=== PATIENT | male | born 1990 | race Caucasian/White ===

== ENCOUNTER 2017-12-04 17:03 | Outpatient (CLI) | payer OTHER ==
--- NOTE | 2017-12-04 18:31 | Ultrasound Report ---
EXAM: LEFT LOWER EXTREMITY VENOUS ULTRASOUND EXAM DATE: 12/04/2017 06:15 PM. CLINICAL HISTORY: PAIN IN LEFT LOWER LEG. COMPARISON: None. TECHNIQUE: Real-time sonographic vascular imaging was performed by the optical instrument inspector through the lower extremity utilizing both color-flow and Doppler spectral analysis. Multiple sales representative meats static enrrique ges were saved for review. FINDINGS: Common Femoral Vein (CFV): Normal. CFV-GSV Junction: Normal. Profunda Femoral Vein (PFV): Normal. Femoral Vein (FV) Prox: Normal. Femoral Vein (FV) Mid: Normal. Femoral Vein (FV) Dist: Normal. Popliteal Vein: Normal. Posterior Tibial Veins: Normal. Peroneal Veins: Normal. Gastrocnemius vein prominent clot is seen extending to within 0.5 cm of the popliteal vein Other: None. IMPRESSION: Positive for thrombosis in the left gastrocnemius vein. Unable to reach referring physician; report called to [facility] ER at 1828 hrs. YOGI Referring Provider Line: [phone] SITE ID: [id number]
== END 2017-12-04 17:04 | disposition home or self-care (01) ==
LOC: DI 17:03
PROVIDERS: ATTEND Student in an Organized Health Care Education/Training Program
DX: I82.492 Acute embolism and thrombosis of other specified deep vein of left lower extremity (principal)

== ENCOUNTER 2017-12-04 18:32 | Emergency (ER) | payer OTHER ==
[2017-12-04 18:46] VITALS: BP 122/74
[2017-12-04] MEDS ORDERED: ENOXAPARIN 80 MG/0.8 ML SYRINGE SUBQ STA (19:40)
--- NOTE | 2017-12-04 19:42 | ED Physician Documentation ---
PD HPI LOWER EXT INJURY - Stated complaint Stated Complaint: US RESULTS - Chief complaint Chief Complaint: Ext Problem - History obtained from History obtained from: Patient - History of Present Illness PD HPI LOW EXT INJURY LOCATION: Other (He is a healthy 27-year-old gentleman injured his knee playing soccer and then drove up from [place] last week and developed calf pain about 5 days ago. He saw his doctor yesterday and ultrasound was done today showing a calf DVT. The washing and screening plant supervisor/radiologist were unable to get a hold of the ordering physician so he was referred here for initial treatment. There is no personal history of DVT or PE and he denies chest pain or trouble breathing.) Review of Systems Constitutional: denies: Fever, Chills Cardiac: denies: Chest pain / pressure, Palpitations Respiratory: denies: Dyspnea, Cough PD PAST MEDICAL HISTORY - Past Medical History Past Medical History: No - Past Surgical History Past Surgical History: No - Present Medications Home Medications: Ambulatory Orders Medication Instructions Recorded Confirmed Enoxaparin [Lovenox] 80 mg SUBQ Q12H #10 syringe 12/04/17 Propranolol [Inderal] 0 BID 12/04/17 - Allergies Allergies/Adverse Reactions: Allergies Allergy/AdvReac Type Severity Reaction Status Date / Time caffeine Allergy Rash Verified 12/04/17 18:46 - Social History Does the pt smoke?: No Smoking Status: Never smoker Does the pt drink ETOH?: No Does the pt have substance abuse?: No - Immunizations Immunizations are current?: Yes PD ED PE NORMAL - Vitals Vital signs reviewed: Yes - General General: Alert and oriented X 3, No acute distress - Extremities Extremities: Other (Left leg is in a knee immobilizer. There is really no significant calf tenderness or swelling.) - Neuro Neuro: Alert and oriented X 3, Normal speech Results - Vitals Vitals: Vital Signs - 24 hr 12/04/17 18:42 Temperature 36.4 C L Heart Rate 68 Respiratory 16 Rate Blood Pressure 122/74 O2 Saturation 100 Oxygen O2 Source Room air PD MEDICAL DECISION MAKING - ED course ED course: 27-year-old gentleman with a induced DVT given recent injury and travel of the left leg, below the calf. We were unable to get a hold of his physician so I will put him on Lovenox pending follow-up tomorrow as it can easily be stopped or changed. Departure - Departure Disposition: 01 Home, Self Care Clinical Impression: Deep vein thrombosis Qualifiers: DVT location: lower extremity Affected thrombotic vein of extremity: unspecified lower extremity distal vein Chronicity: acute Laterality: left Qualified Code(s): I82.4Z2 - Acute embolism and thrombosis of unspecified deep veins of left distal lower extremity Condition: Good Record reviewed to determine appropriate education?: Yes Instructions: DVT Dc Prescriptions: Enoxaparin [Lovenox] 80 mg SUBQ Q12H #10 syringe Comments: [place] the prescription with you. As discussed we are choosing this medication tonight such that your doctor can change it tomorrow if she sees fit to use a different agent.
== END 2017-12-04 19:56 | disposition home or self-care (01) ==
LOC: ED 18:32
DX: I82.4Z2 Acute embolism and thrombosis of unspecified deep veins of left distal lower extremity (principal); I82.492 Acute embolism and thrombosis of other specified deep vein of left lower extremity
CPT/HCPCS: 93971; 96372; 99283; J1650

== ENCOUNTER 2017-12-11 14:28 | Outpatient (CLI) | payer OTHER ==
--- NOTE | 2017-12-12 14:12 | MRI Report ---
EXAM: LEFT KNEE MRI WITHOUT CONTRAST EXAM DATE: 12/11/2017 04:06 PM. CLINICAL HISTORY: Patient reports twisting soccer injury on 11/18/2017. Patient fell and felt a pop in his left knee. Lateral internal pain worse with pressure, difficulty weightbearing. Buckling. COMPARISON: None available. TECHNIQUE: Multiplanar, multisequence T1-weighted and fluid-sensitive sequences of the knee without c ontrast. Other: None. FINDINGS: Bones: Mild impaction fractures anterior aspect lateral femoral condyle and posterior margin lateral tibial plateau. Subtle impaction fractures at the medial margin medial femoral condyle and posterior margin medial tibial plateau. Articular Cartilage: No focal defect. Medial Meniscus: The medial meniscus is intact. Lateral Meniscus: Ill-defined hyperintense signal in the substance of the anterior horn and root. No discrete fluid-filled tear. Cruciate Ligaments: Diffuse distortion mid to distal aspect anterior cruciate ligament. Some torn fib ers extending to the anterior intercondylar notch. Some fibers may remain intact. Posterior cruciate ligament is intact. Collateral Ligaments: The medial collateral and lateral collateral ligamentous structures are intact. Tendons: The quadriceps, patellar, semimembranosus, and popliteus tendons are unremarkable. Musculature: No fatty atrophy. Minimal edema in the vastus lateralis, popliteus, and calf musculature . Other: Large joint effusion with synovitis. Thickening of the medial plica. No popliteal cyst. No loo se bodies. The medial and lateral retinacula are intact. Mild subcutaneous edema anteriorly. Mild teresa ctive edema in the fat pads. IMPRESSION: 1. High-grade partial versus complete disruption anterior cruciate ligament. 2. Contusion anterior horn and root lateral meniscus without discrete tear. 3. Mild impaction fractures lateral femoral condyle and lateral tibial plateau and subtle impaction f ractures medial femoral condyle and medial tibial plateau. 4. Large joint effusion. [facility]UL[facility] Referring Provider Line: [phone] SITE ID: [id number]
== END 2017-12-11 14:29 | disposition home or self-care (01) ==
LOC: DI 14:28
PROVIDERS: ATTEND General Practice
DX: S83.512A Sprain of anterior cruciate ligament of left knee, initial encounter (principal); S72.422A Displaced fracture of lateral condyle of left femur, initial encounter for closed fracture; S82.142A Displaced bicondylar fracture of left tibia, initial encounter for closed fracture; S72.432A Displaced fracture of medial condyle of left femur, initial encounter for closed fracture; M25.462 Effusion, left knee

== ENCOUNTER 2020-08-11 03:41 | Outpatient (CLI) | payer OTHER | END 2020-08-11 03:42 | disposition short-term general hospital (02) | LOC: EMS 03:41 | PROVIDERS: ATTEND Surgery | DX: R51.9 Headache, unspecified (principal); R42 Dizziness and giddiness; H53.8 Other visual disturbances | CPT/HCPCS: A0425; A0427 ==

== ENCOUNTER 2020-10-19 16:56 | Emergency (ER) | payer OTHER ==
--- NOTE | 2020-10-19 17:01 | ED Physician Documentation ---
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 He had a first-time seizure back in July. Initially seen at [facility] and subsequently followed up with Dr. Livingston, [employer] neurologist in [place]. He had an MRI done, per his report it was normal. He does not drink alcohol. He was on Keppra but was weaned off about a month ago. He had 2 [id number] tonic-clonic seizures today. He does not remember them. On arrival his mental status is normal. He has no complaints. He did not bite his tongue or get injured. No incontinence. Review of Systems Ten Systems: 10 systems reviewed and negative Constitutional: denies: Fever, Chills Nose: denies: Rhinorrhea / runny nose, Congestion Throat: denies: Sore throat Cardiac: denies: Chest pain / pressure, Palpitations Respiratory: denies: Dyspnea, Cough PD PAST MEDICAL HISTORY - Past Surgical History Past Surgical History: No - Present Medications Home Medications: Ambulatory Orders Medication Instructions Recorded Confirmed No Known Home Medications 10/19/20 10/19/20 - Allergies Allergies/Adverse Reactions: Allergies Allergy/AdvReac Type Severity Reaction Status Date / Time caffeine Allergy Rash Verified 10/19/20 17:00 - Social History Does the pt smoke?: No Smoking Status: Never smoker Does the pt drink ETOH?: No Does the pt have substance abuse?: No - Immunizations Immunizations are current?: Yes PD ED PE NORMAL - Vitals Vital signs reviewed: Yes - General General: Alert and oriented X 3, No acute distress - HEENT HEENT: PERRL, EOMI - Neck Neck: Supple, no meningeal sign, No bony TTP - Cardiac Cardiac: RRR, No murmur - Respiratory Respiratory: No respiratory distress, Clear bilaterally - Abdomen Abdomen: Normal bowel sounds, Soft, Non tender - Back Back: No CVA TTP, No spinal TTP - Derm Derm: Normal color, Warm and dry - Extremities Extremities: No edema, No calf tenderness / cord - Neuro Neuro: Alert and oriented X 3, No motor deficit, No sensory deficit, Normal speech Results - Vitals Vitals: Vital Signs - 24 hr 10/19/20 10/19/20 17:01 17:50 Temperature 36.7 C Heart Rate 90 88 Respiratory 19 16 Rate Blood Pressure 110/77 112/70 O2 Saturation 100 98 Oxygen O2 Source Room air - EKG (time done) 1708 Rate: Rate (enter#) (86) Rhythm: NSR Mcleod: Normal Intervals: Normal CO QRS: Normal Ischemia: Normal ST segments Computer interpretation: Agree with computer - Labs Labs: Laboratory Tests 10/19/20 10/19/20 10/19/20 17:05 17:05 17:10 WBC 12.1 H RBC 4.77 Hgb 15.0 Hct 41.7 L MCV 87.4 MCH 31.4 H MCHC 36.0 RDW 11.9 L Plt Count 271 MPV 10.0 Neut # (Auto) 9.4 H Lymph # (Auto) 1.6 Pierce # (Auto) 1.0 Eos # (Auto) 0.0 Baso # (Auto) 0.0 Absolute Nucleated RBC 0.00 Nucleated RBC % 0.0 Sodium 135 Potassium 3.6 Chloride 100 L Carbon Dioxide 20 L Anion Gap 15.0 H BUN 17 Creatinine 1.1 Estimated GFR (MDRD) 79 L Glucose 91 Calcium 9.8 Magnesium 2.0 Total Bilirubin 1.0 AST 27 ALT 19 Alkaline Phosphatase 64 Total Protein 7.5 Albumin 4.7 Globulin 2.8 Albumin/Globulin Ratio 1.7 Urine Opiates Screen NEGATIVE Ur Oxycodone Screen NEGATIVE Urine Methadone Screen NEGATIVE Ur Propoxyphene Screen NEGATIVE Ur Barbiturates Screen NEGATIVE Ur Tricyclics Screen NEGATIVE Ur Phencyclidine Scrn NEGATIVE Ur Amphetamine Screen NEGATIVE U Methamphetamines Scrn NEGATIVE U Benzodiazepines Scrn NEGATIVE Urine Cocaine Screen NEGATIVE U Cannabinoids Screen NEGATIVE PD MEDICAL DECISION MAKING - ED course ED course: Second seizure in 3 months. He had been weaned off of Keppra. His exam here is normal and nothing worrisome on his labs. I tried to get a hold of his neurologist, Dr. Livingston in [place]. He was not available and no one takes call for him but I did speak with the medical practice administrator of the day who recommended restarting Keppra at the old dose ending follow-up. Was discussed with the patient and he would like to not take Keppra until he sees his neurologist. Risks of not taking seizure medicine was discussed with the patient he understands and takes these upon himself. Departure - Departure Disposition: 01 Home, Self Care Clinical Impression: Seizure Condition: Good Record reviewed to determine appropriate education?: Yes Instructions: ED Seizure Recurrent Comments: As discussed, per [place] state law you cannot drive until cleared by your neurologist or 6 months has passed seizure-free. Return for new or worsening symptoms. Follow-up with your neurologist as scheduled next week. Also out of an abundance of caution you should not do anything else besides driving that would put you at risk for you to have another seizure, this would include swimming, climbing ladders etc. Try to get a full night sleep every night. Abstain from alcohol.
[2020-10-19 17:15] LABS: BASOPHILS % (AUTO) 0.3 %; EOSINOPHILS % (AUTO) 0.1 %; LYMPHOCYTES # (AUTO) 1.6 10^3/uL (1.5-3.5); LYMPHOCYTES % (AUTO) 13.3 %; MEAN CORPUSCULAR HEMOGLOBIN 31.4 pg (27.0-31.0); MEAN CORPUSCULAR VOLUME 87.4 fL (80.0-94.0); MONOCYTES % (AUTO) 8.5 %; NEUTROPHILS # (AUTO) 9.4 10^3/uL (1.5-6.6); NEUTROPHILS % (AUTO) 77.6 %; PLT - PLATELET COUNT 271 10^3/uL (130-450); RED BLOOD COUNT 4.77 10^6/uL (4.70-6.10); RED CELL DISTRIBUTION WIDTH 11.9 % (12.0-15.0); WHITE BLOOD COUNT 12.1 x10^3/uL (4.8-10.8)
[2020-10-19 17:24] LABS: ALBUMIN 4.7 g/dL (3.2-5.5); ALBUMIN/GLOBULIN RATIO 1.7 (1.0-2.2); CALCIUM 9.8 mg/dL (8.5-10.3); CREATININE 1.1 mg/dL (0.6-1.2); TOTAL PROTEIN 7.5 g/dL (6.7-8.2)
[2020-10-19 17:50] LABS: MUDS CUTOFF CONCENTRATIONS CUTOFF CONC BELOW:
[2020-10-19 17:59] LABS: AMPHETAMINE SCREEN,URINE NEGATIVE (NEGATIVE); BENZODIAZEPINES SCREEN, URINE NEGATIVE (NEGATIVE); COCAINE SCREEN URINE NEGATIVE (NEGATIVE); METHADONE SCREEN, URINE NEGATIVE (NEGATIVE); METHAMPHETAMINES SCREEN, URINE NEGATIVE (NEGATIVE); OPIATE SCREEN, URINE NEGATIVE (NEGATIVE); OXYCODONE SCREEN, URINE NEGATIVE (NEGATIVE); PROPOXYPHENE SCREEN, URINE NEGATIVE (NEGATIVE); TRICYCLIC ANTIDEPRESSANT,URINE NEGATIVE (NEGATIVE)
[2020-10-19 18:27] VITALS: BP 120/78
== END 2020-10-19 18:26 | disposition home or self-care (01) ==
LOC: EDUNIT# → ED 16:56
DX: R56.9 Unspecified convulsions (principal)
CPT/HCPCS: 36415; 80053; 80306; 83735; 85025; 93005; 99283